=== PATIENT | female | born 1965 | race Caucasian/White ===

== ENCOUNTER 2019-08-17 09:11 | Outpatient (CLI) | payer OTHER, SELFPAY ==
--- NOTE | ~2019-08-17 | XR_ITS ---
XR thoracic spine 2V DATE: 08/17/2019 09:59 INDICATION: Back muscle spasm. Neck pain. TECHNIQUE: AP, lateral, swimmer views COMPARISON: None FINDINGS: There is mild degenerative spurring of the mid and lower thoracic spine. No fracture or dis location or bone destruction. The thoracic pedicles are intact. No paraspinal soft tissue thickening. IMPRESSION: Degenerative spurring of the thoracic spine Reviewed, dictated and finalized at location B. CTOR CORRECTIONAL AGENCY
--- NOTE | ~2019-08-17 | XR_ITS ---
XR chest 2V DATE: 08/17/2019 09:59 INDICATION: Cough TECHNIQUE: PA and lateral views COMPARISON: 07/13/2018 2 view chest FINDINGS: Normal heart size. No hilar or mediastinal enlargement. No pulmonary infiltrate or consolid ation, pleural effusion or pulmonary vascular congestion or pneumothorax. IMPRESSION: No active cardiopulmonary disease Reviewed, dictated and finalized at location B. STRY INSTRUCTOR
--- NOTE | ~2019-08-17 | XR_ITS ---
XR cervical spine 4-5V DATE: 08/17/2019 09:59 INDICATION: Neck pain TECHNIQUE: Standing AP, lateral, open-mouth, swimmer views COMPARISON: None FINDINGS: There is normal alignment of the cervical spine. No fracture or dislocation or locked facet or prevertebral soft tissue swelling. C1 and C2 are normally aligned and the odontoid process is int act. There is moderate loss of interspace height at C6-7. IMPRESSION: Moderate loss of interspace height at C6-7 Reviewed, dictated and finalized at location B. L RECREATIONAL FACILITIES MANAGER
== END 2019-08-17 09:12 ==
LOC: MICIMG 09:14
PROVIDERS: PCP Family Medicine; Visit Provider Family Medicine
DX: M54.2 Cervicalgia (principal); R05 Cough; M62.830 Muscle spasm of back; M51.24 Other intervertebral disc displacement, thoracic region
CPT/HCPCS: 71046; 72050; 72070

== ENCOUNTER → 2019-09-15 08:02 | Outpatient (CLI) | payer OTHER, SELFPAY ==
--- NOTE | ~2019-09-15 | MR_ITS ---
EXAMINATION: MR cervical spine wo con EXAM DATE: 09/15/2019 08:41 INDICATION: Neck pain, bilateral hand numbness. TECHNIQUE: Multi-sequential, multiplanar MR images of the cervical spine were obtained without contra st. Axial T2, axial T2 MERGE sequence. Sagittal T1, T2, T2 fat saturation images also obtained. Th ere is no prior study for comparison. FINDINGS: Mild to moderate disc disease at C6-7, mild at C4-5 and 5-6. The vertebral bodies are alig mekhi in the AP dimension. There is a hemangioma in the T3 vertebral body. There are no suspicious yuly ow signal otherwise abnormalities. The spinal cord signal intensity and intrinsic morphology is lake l. Cervicomedullary junction is normal in appearance. Level by level evaluation: C2-C3: Disc does not extend beyond the endplate margin. Uncovertebral joint arthropathy: None. Facet joint arthropathy: Mild right. Neural foraminal stenosis: No stenosis. Central canal stenosis: No stenosis. C3-C4: Disc does not extend beyond the endplate margin. Uncovertebral joint arthropathy: Mild left. Facet joint arthropathy: Mild to moderate right, mild left. Neural foraminal stenosis: No stenosis. Central canal stenosis: No stenosis. C4-C5: There is a minimal diffuse disc bulge. Uncovertebral joint arthropathy: Mild to moderate right, mild left. Facet joint arthropathy: Moderate right, mild to moderate left. Neural foraminal stenosis: Mild right. Central canal stenosis: No stenosis. C5-C6: There is a mild to moderate diffuse disc bulge. Uncovertebral joint arthropathy: Mild to moderate bilateral. Facet joint arthropathy: Mild to moderate bilateral. Neural foraminal stenosis: Moderate left, mild to moderate right. Central canal stenosis: Mild. C6-C7: There is a mild diffuse disc bulge. Uncovertebral joint arthropathy: Moderate right, mild to moderate left. Facet joint arthropathy: Mild bilateral. Neural foraminal stenosis: Mild to moderate bilateral, left greater than right. Central canal stenosis: Mild. C7-T1: Disc does not extend beyond the endplate margin. Uncovertebral joint arthropathy: None. Facet joint arthropathy: None. Neural foraminal stenosis: No stenosis. Central canal stenosis: No stenosis. IMPRESSION: 1. Mild to moderate spondylosis C5-6 and 6-7. Reviewed, dictated and finalized at location A.
== END ==
PROVIDERS: PCP Physician Assistant Medical; Visit Provider Physician Assistant Medical
DX: M47.892 Other spondylosis, cervical region (principal)
CPT/HCPCS: 72141

== ENCOUNTER 2021-08-19 13:48 | Outpatient (CLI) | payer OTHER, SELFPAY ==
--- NOTE | ~2021-08-19 | MR_ITS ---
EXAMINATION: MR cervical spine wo con DATE: 08/19/2021 14:33 INDICATION: Cervicalgia TECHNIQUE: Magnetic resonance imaging (MRI) of the cervical spine was performed without intravenous c ontrast. Sequences included sagittal T2-weighted FSE, sagittal T2-weighted FS FSE, sagittal T1-weight ed FSE, axial MERGE and axial T2-weighted FSE. COMPARISON: 09/15/2019 FINDINGS: Draining of the normal cervical lordosis. Cervical body heights are normal. Minimal anterior wedging at T4 and T5. Again seen is a T1 and T2 hyperintense hemangioma at T3. Marrow signal is otherwise nor mal. Moderate disc height loss at C6-C7 and T5-T6. Mild disc height loss at C4-C5, C5-C6 and T2-T3 th rough T4-T5. Cord signal intensity is normal. Visualized cervical soft tissues are unremarkable. The following disc levels are specifically discussed: C2-C3: The disc does not extend beyond the endplate margin. There is no uncovertebral joint osteoarth ritis. There is left and moderate right facet joint osteoarthritis. There is no neural foraminal sten osis. There is no central canal stenosis. C3-C4: The disc does not extend beyond the endplate margin. There is mild left uncovertebral joint os teoarthritis. There is moderate bilateral facet joint osteoarthritis. There is mild left neural freddy inal stenosis. There is no central canal stenosis. C4-C5: Mild diffuse disc bulge. There is moderate right and mild left uncovertebral joint osteoarthri tis. There is mild to moderate left and severe right facet joint osteoarthritis. There is mild right neural foraminal stenosis. There is no central canal stenosis. C5-C6: Diffuse disc bulge with annular fissure and small central disc extrusion with disc material ex tending a few millimeters cephalad to the level of the inferior endplate of C5. There is severe bilat eral uncovertebral joint osteoarthritis. There is moderate left and mild to moderate right facet join t osteoarthritis. There is moderate bilateral neural foraminal stenosis. There is mild central canal stenosis with slight indentation of the ventral surface of the cord. C6-C7: Diffuse disc bulge slightly more prominent in the right paracentral region. There is moderate bilateral uncovertebral joint osteoarthritis. There is mild bilateral facet joint osteoarthritis. The re is moderate bilateral neural foraminal stenosis. There is mild central canal stenosis with slight indentation of the right ventral surface of the cord. C7-T1: The disc does not extend beyond the endplate margin. There is no uncovertebral joint osteoarth ritis. There is no facet joint osteoarthritis. There is no neural foraminal stenosis. There is no mariola tral canal stenosis. IMPRESSION: 1. Slight progression in moderate lower cervical predominant spondylosis. Reviewed, dictated and finalized at location A. TENANCE MANAGER
== END 2021-08-19 13:49 | disposition home or self-care (01) ==
LOC: ANHIMG 13:56
PROVIDERS: PCP Family Medicine; Visit Provider Nurse Practitioner Family
DX: M54.16 Radiculopathy, lumbar region (principal); M47.892 Other spondylosis, cervical region
CPT/HCPCS: 72141

== ENCOUNTER 2024-08-17 11:52 | Outpatient (CLI) | payer MEDICAID, SELFPAY ==
--- NOTE | ~2024-08-17 | XR_ITS ---
EXAMINATION: XR knee LT min 4V DATE: 08/17/2024 12:23 INDICATION: Left knee pain deep to the patella. TECHNIQUE: Weight bearing anteroposterior and [place], sunrise, and flexed lateral views of the lef t knee were obtained COMPARISON: None. FINDINGS: Alignment is normal. No fracture. Severe joint space narrowing in the medial compartment. Mild joint space narrowing at the lateral and patellofemoral compartments with small to moderate size marginal osteophytes. No joint effusion/layering lipohemarthrosis. Soft tissues are unremarkable. IMPRESSION: 1. Tricompartmental osteoarthritis of the left knee, severe in the medial compartment and mild in the lateral and patellofemoral compartments. Reviewed, dictated and finalized at location A. MAKER IMPRESSION: 1. Tricompartmental osteoarthritis of the left knee, severe in the medial donovan rtment and mild in the lateral and patellofemoral compartments.
[2024-08-17 12:50] LABS: Hematocrit 44.7 % (37.0-47.0); Hemoglobin 15.1 g/dL (12.0-15.0); Mean Corpuscular HGB Conc 33.8 g/dl (32-36); Mean Corpuscular Hemoglobin 31.3 pg (26-34); Mean Corpuscular Volume 92.5 fl (80-100); Mean Platelet Volume 9.3 fl (7.4-10.4); Platelet Count Result 269 k/mm3 (150-375); Red Blood Count 4.83 M/mm3 (4.2-5.4); Red Cell Distribution Width 12.5 % (11.5-14.5); White Blood Count 7.6 K/mm3 (4.5-10.0)
[2024-08-17 13:07] LABS: Alanine Aminotransferase 18 U/L (6-35); Albumin Level 4.5 g/dL (3.5-5.1); Alkaline Phosphatase 60 U/L (38-126); Anion Gap 11 mmol/L (4-12); Aspartate Amino Transferase 25 U/L (14-36); Bilirubin,Total 0.6 mg/dL (0.2-1.3); Blood Urea Nitrogen 16 mg/dL (7-17); Calcium 9.6 mg/dL (8.4-10.2); Carbon Dioxide 28 mmol/L (22-30); Chloride 103 mmol/L (98-107); Cholesterol 209 mg/dL (0-200); Estimated Glomerular Filt Rate > 60; Glucose 103 mg/dL (65-110); HDL Direct 59 mg/dL; Potassium 3.5 mmol/L (3.4-5.0); Sodium 142 mmol/L (137-145); Triglycerides 101 mg/dL (<150)
[2024-08-17 13:18] LABS: LDL Cholesterol Direct 109 mg/dL
== END 2024-08-17 11:53 | disposition home or self-care (01) ==
LOC: ANHIMG 11:55
PROVIDERS: PCP Family Medicine; Visit Provider Family Medicine
DX: M17.12 Unilateral primary osteoarthritis, left knee (principal); E78.2 Mixed hyperlipidemia; I10 Essential (primary) hypertension; Z13.220 Encounter for screening for lipoid disorders
CPT/HCPCS: 36415; 73564; 80048; 80061; 80076; 84443; 85027

== ENCOUNTER 2025-04-27 10:29 | Outpatient (CLI) | payer OTHER, SELFPAY ==
--- OUTSIDE RECORDS SUMMARY | 2025-04-27 11:51 | XMS_ITS | Clinical Summary ---
Author Organization [facility] Address [address] [place] [id number] Care Team Providers Care Stripper And Taper Name Role Phone Maximino Lazo MD Primary Care Provider [phone] Allergies Active Allergy Reactions Criticality Noted Date Comments Sulfamethizole Anaphylaxis High 08/19/2024 Trimethoprim Anaphylaxis High 08/19/2024 Family History Medical History Relation Comments malignant neoplasm of breast Mother Diabetes Other Hypertension Other Lung Disease Other cardiovascular disease Other Relation Status Comments Mother Other Social History Tobacco Use Types Packs/Day Years Used Date Smoking Tobacco: Former Cigarettes Passive Smoke Exposure: Never Smokeless Tobacco: Never Alcohol Use Standard Drinks/Week Comments Yes 0 (1 standard drink = 0.6 oz pur e alcohol) Comments Unknown Sex and Gender Information Value Date Recorded Sex Assigned at Female 08/18/2024 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 Legal Sex Female 8:25 PM CDT Gender Identity Not on file Sexual Orientation Not on file Plan of Treatment Health Maintenance Due Date Last Done Comments Cervical Cancer Screening Pa p Smear (Age 30 to 64) Every 3 Years 1967 Colorectal Cancer Screening Colonoscopy (10 Years) 1967 Annual Physical 1970 Hepatitis C 1985 Hepatitis B Vaccines (1 of 3 - 19+ 3-dose series) 1986 Cervical Cancer Screening Pa p with HPV Testing (Age 30 to 64) Every 5 Years 1997 Cervical Cancer Screening with HPV 1997 Mammogram Screening 2007 Pneumococcal Vaccine: 50+ Ye ars (1 of 1 - PCV) 2017 Zoster Vaccines (1 of 2) 2017 PHQ-2 (Physician [place]) 06/30/2024 COVID-19 Vaccine (2024-2 6 season) 2025 Influenza Adult (#1) 2025 DTaP, Tdap and Td Vaccines ( 2 - Td or Tdap) 09/30/2034 09/30/2024 Hepatitis A Vaccines Aged Out No long er eligible based on patient's age to complete this topic Meningococcal B Vaccine Aged Out No l onger eligible based on patient's age to complete this topic Meningococcal Vaccine Aged Out No silvana garcia eligible based on patient's age to complete this topic RSV Immunizations Under 20 Months Aged Out No longer eligible based on patient's age to complete this topic Insurance [place] [employer] Care Teams Stripper And Taper Relationship Specialty Start Date End Date Maximino Lazo MD [address] [place], [place] [id number] PCP - General FAMILY PRACTICE 08/19/24
== END 2025-04-27 10:30 | disposition home or self-care (01) ==
LOC: ANHAUDASC 10:30
PROVIDERS: PCP Family Medicine; Visit Provider Otolaryngology
DX: H93.13 Tinnitus, bilateral (principal); H90.3 Sensorineural hearing loss, bilateral
CPT/HCPCS: 92557; 92567